=== PATIENT | female | born 1940 | race Caucasian/White ===

== ENCOUNTER 2021-06-29 11:38 | Observation (INO) | payer OTHER ==
--- OUTSIDE RECORDS SUMMARY | 2021-06-29 11:46 | XMS REPORT | Continuity of Care Document ---
:1940 Author Organization [facility] t Address [address] [place] [address] [address] [place] [address] Care Team Providers Name Role Phone MARGRET Wesley Primary Care Physician Unavailable Vaccine, Db Cbc Fam Attending Clinician Unavailable Yocasta GRIFFIN Attending Clinician YOCASTA Attending Clinician Unavailable Doctor Unassigned, Name Attending Clinician Unavailable WILLY BRADFORD Attending Clinician Unavailable Nurse, Pob Immunization Attending Clinician Unavailable Willy Bradford DO Attending Clinician Alethea BAUMAN Attending Clinician Unavailable Diana HYATT Attending Clinician Unavailable Payers Payer Name Policy Type Policy Number Effective Date Expiration Date S beto MEDICARE PART A \T\ [id number] 2003 B 00:00:00 GENERIC MEDICARE [id number] ADVANTAGE PPO MEDICARE PART A \T\ [id number] B - MEDICARE MEDICARE SUPPLEMENT [id number] [facility] CHOICE/CHOICE [id number] PLUS/OPTIONS [facility] Problems Condition Condition Condition Status Onset Resolution Last Treating Co mments Source Name Details Category Date Date Treatment Clinician Date No known No known Disease Unive rs active active ity of problems problems [facility] Allergies, Adverse Reactions, Alerts Allergy Allergy Status Severity Reaction(s) Onset Inactive Treating Comm ents Source Name Type Date Date Clinician NO KNOWN Drug Active Univers ALLERGIE Class ity of S [facility] Social History Social Habit Start Date Stop Date Quantity Comments Source Exposure to Not sure [facility] SARS-CoV-2 (event) Medica l Branch Tobacco use and 2017-12-02 2017-12-02 Never used [facility] exposure 00:00:00 00:00:00 Medical Branch Alcohol intake 2017-12-02 2017-12-02 0 /d [facility] 00:00:00 00:00:00 Medical Branch Sex [birth year] [facility] 00:00:00 00:00:00 Medical Branch Smoking Status Start Date Stop Date Source Never smoker [facility] Medical Branch Medications Ordered Filled Start Stop Current Ordering Indication Dosage Frequency Signature Comments Components Source Medication Medication Date Date Medication? Clinician (SIG) Name Name donepezil 5 Yes 5mg Take 5 mg U nivers mg tablet 4-06 by mouth ity of 17:41: daily. [address] DULoxetine Yes 60mg Take 60 mg U nivers (CYMBALTA) 4-06 by mouth 2 ity of 60 mg 17:41: (two) [place] capsule 58 times Medical daily. Branch clonazePAM Yes .5mg Take 0.5 Uni vers 0.5 mg 4-06 mg by ity of tablet 17:41: mouth 4 [place] [address] (four) Medical times Branch daily. DULoxetine 2017- Yes 60mg Take 60 mg U nivers (CYMBALTA) 4-06 by mouth 2 ity of 60 mg 12:41: (two) [place] capsule 58 times Medical daily. Branch clonazePAM Yes .5mg Take 0.5 Uni vers 0.5 mg 4-06 mg by ity of tablet 12:41: mouth 4 [place] [address] (four) Medical times Branch daily. donepezil 5 Yes 5mg Take 5 mg U nivers mg tablet 4-06 by mouth ity of 12:41: daily. [address] DULoxetine 2017 Yes 60mg Take 60 mg U nivers (CYMBALTA) 4-06 by mouth 2 ity of 60 mg 12:41: (two) [place] capsule 58 times Medical daily. Branch clonazePAM 2017- Yes .5mg Take 0.5 Uni vers 0.5 mg 4-06 mg by ity of tablet 12:41: mouth 4 [place] [address] (four) Medical times Branch daily. donepezil 5 Yes 5mg Take 5 mg U nivers mg tablet 4-06 by mouth ity of 12:41: daily. [place] [address] Medical Branch DULoxetine 2017-0 Yes 60mg Take 60 mg U nivers (CYMBALTA) 4-06 by mouth 2 ity of 60 mg 12:41: (two) [place] capsule 58 times Medical daily. Branch clonazePAM 2017-0 Yes .5mg Take 0.5 Uni vers 0.5 mg 4-06 mg by ity of tablet 12:41: mouth 4 [place] 58 (four) Medical times Branch daily. donepezil 5 2017-0 Yes 5mg Take 5 mg U nivers mg tablet 4-06 by mouth ity of 12:41: daily. [place] [address] Medical Branch gabapentin 2017-0 Yes 100mg Take 1 Univ ers 100 mg 4-06 capsule by ity of capsule 00:00: mouth as [place] 00 needed for Medical Pain Branch (scale 4-6). gabapentin 2017-0 Yes 100mg Take 1 Univ ers 100 mg 4-06 capsule by ity of capsule 00:00: mouth as [place] 00 needed for Medical Pain Branch (scale 4-6). gabapentin 2017-0 Yes 100mg Take 1 Univ ers 100 mg 4-06 capsule by ity of capsule 00:00: mouth as [place] 00 needed for Medical Pain Branch (scale 4-6). gabapentin 2017-0 Yes 100mg Take 1 Univ ers 100 mg 4-06 capsule by ity of capsule 00:00: mouth as [place] 00 needed for Medical Pain Branch (scale 4-6). HYDROcodone 2017-0 Yes 1{tbl} Take 1 Tab Univers -acetaminop 3-23 by mouth 4 it y of [place] (NOR[place]) 19:58: (four[place] 10-325 [place] 53 times Medical tablet daily. Branch HYDROcodone 2017-0 Yes 1{tbl} Take 1 Tab Univers -acetaminop 3-23 by mouth 4 it y of [place] (NORCO) 14:58: (four[place] 10-325 mg 53 times Medical tablet daily. Branch HYDROcodone 2017-0 Yes 1{tbl} Take 1 Tab Univers -acetaminop 3-23 by mouth 4 it y of [place] (NORCO) 14:58: (four[place] 10-325 mg 53 times Medical tablet daily. Branch HYDROcodone 2017-0 Yes 1{tbl} Take 1 Tab Univers -acetaminop 3-23 by mouth 4 it y of [place] (NOR[place]) 14:58: (four[place] 10-325 [place] 53 times Medical tablet daily. Branch naproxen 2017-0 Yes 500mg Take 1 Univer s 500 mg 3-23 tablet by ity of tablet 00:00: mouth 2 (two) Medical times Branch daily with meals. naproxen 2017-0 Yes 500mg Take 1 Univer s 500 mg 3-23 tablet by ity of tablet 00:00: mouth 2 (two) Medical times Branch daily with meals. naproxen 2017-0 Yes 500mg Take 1 Univer s 500 mg 3-23 tablet by ity of tablet 00:00: mouth 2 (two) Medical times Branch daily with meals. naproxen 2017-0 Yes 500mg Take 1 Univer s 500 mg 3-23 tablet by ity of tablet 00:00: mouth 2 (two) Medical times Branch daily with meals. memantine 2017-0 Yes 10mg Take 10 mg Un osmar 10 mg 2-21 by mouth 2 ity of tablet 00:00: (two) times Medical daily. Branch memantine 2017-0 Yes 10mg Take 10 mg Un osmar 10 mg 2-21 by mouth 2 ity of tablet 00:00: (two) times Medical daily. Branch memantine 2017-0 Yes 10mg Take 10 mg Un osmar 10 mg 2-21 by mouth 2 ity of tablet 00:00: (two) times Medical daily. Branch memantine 2017-0 Yes 10mg Take 10 mg Un osmar 10 mg 2-21 by mouth 2 ity of tablet 00:00: (two) times Medical daily. Branch traZODONE 2017-0 Yes 50mg Take 50 mg Un osmar 50 mg 2-07 by mouth ity of tablet 00:00: at [place] [address] bedtime. Medical Branch traZODONE 2017-0 Yes 50mg Take 50 mg Un osmar 50 mg 2-07 by mouth ity of tablet 00:00: at [place] [address] bedtime. Medical Branch traZODONE 2017-0 Yes 50mg Take 50 mg Un osmar 50 mg 2-07 by mouth ity of tablet 00:00: at [place] [address] bedtime. Medical Branch traZODONE 2017-0 Yes 50mg Take 50 mg Un osmar 50 mg 2-07 by mouth ity of tablet 00:00: at [place] [address] bedtime. Medical Branch Immunizations Ordered Filled Immunization Date Status Comments Sour e Immunization Name Name SARS-COV-2 COVID-19 2021-06-18 Completed Unive rsity of MODERNA BOOSTER 00:00:00 [place] Med ical VACCINE Branch SARS-COV-2 COVID-19 2020-12-12 Completed Unive rsity of MODERNA VACCINE 00:00:00 [place] Med ical Branch SARS-COV-2 COVID-19 2020-12-12 Completed Unive rsity of MODERNA VACCINE 00:00:00 [place] Med ical Branch SARS-COV-2 COVID-19 2020-12-12 Completed Unive rsity of MODERNA VACCINE 00:00:00 [place] Med ical Branch SARS-COV-2 COVID-19 2020-04-11 Completed Unive rsity of MODERNA VACCINE 00:00:00 [place] Med ical Branch SARS-COV-2 COVID-19 2020-04-11 Completed Unive rsity of MODERNA VACCINE 00:00:00 [place] Med ical Branch SARS-COV-2 COVID-19 2020-04-11 Completed Unive rsity of MODERNA VACCINE 00:00:00 [place] Med ical Branch SARS-COV-2 COVID-19 2020-04-11 Completed Unive rsity of MODERNA VACCINE 00:00:00 [place] Med ical Branch SARS-COV-2 COVID-19 2020-03-14 Completed Unive rsity of MODERNA VACCINE 00:00:00 [place] Med ical Branch SARS-COV-2 COVID-19 2020-03-14 Completed Unive rsity of MODERNA VACCINE 00:00:00 [place] Med ical Branch SARS-COV-2 COVID-19 2020-03-14 Completed Unive rsity of MODERNA VACCINE 00:00:00 [place] Med ical Branch SARS-COV-2 COVID-19 2020-03-14 Completed Unive rsity of MODERNA VACCINE 00:00:00 [place] Med ical Branch Procedures Procedure Date / Time Performed Performing Clinician [facility] e SARS-COV-2 COVID-19 2021-06-18 20:06:38 Doctor Unassigned, No Un iversity of [place] VACCINE Name Medical Branch BOOSTER,0.25ML,IM (MODERNA) CONSENT/REFUSAL FOR 2021-06-18 19:49:32 Doctor Unassigned, No Un iversity of [place] DIAGNOSIS AND Name [facility] TREATMENT SARS-COV-2 COVID-19 2020-12-12 15:14:24 Doctor Unassigned, No [facility] [place] VACCINE,0.5ML,IM Name [facility] (MODERNA) CLINIC RECORD / SMR 2020-10-23 05:01:00 Doctor Unassigned, No Un iversity of [facility] Encounters Start End Encounter Admission Attending Care Care Encounter Source Date/Time Date/Time Type Type Clinicians Facility Department ID 2021-06-18 2021-06-18 Imm/Inj Vaccine, Ang Db Cbc Fam [facility] 1. [id number] Univers 15:10:00 15:20:00 Visit Monet Oreilly [id number] ity [facility] [id number] Ankit as THIAGO?BLEA [id number] [address] MEDICAL OFFICE BUILDING 2021-06-18 2021-06-18 Outpatient R [facility] [id number] Univers 15:10:00 15:10:00 [id number] ity [facility] 2021-06-18 2021-06-18 Outpatient R YOCASTA [facility] [id number] Univers 15:10:00 15:10:00 MONET julio [facility] 2021-06-18 2021-06-18 Orders Doctor MEDINA [id number] Univers 00:00:00 00:00:00 Only UnassignedJEANINE [id number] ity of [facility] [id number] Ankit as [id number] [address] 2020-12-12 2020-12-12 Outpatient R MYKE [facility] [id number] Univers 10:30:00 10:30:00 DILIP julio [facility] 2020-12-12 2020-12-12 Imm/Inj Nurse, Adc Pob Immunization [facility] [id number] Univers 10:10:51 10:11:00 Visit Dilip Bradford [id number] .10 ity [place] [id number] [place] Profess[place] [phone] [place] [address] [facility] 2020-10-23 2020-10-23 Orders Doctor ADAM [id number] Univers 00:00:00 00:00:00 Only Unassigned, JEANINE [id number] ity of [place] [facility] [id number] Ankit as [id number] [address] 2020-09-18 2020-09-18 Outpatient PFLUGFELDER [facility] BC [id number] [facility] 12:12:00 15:20:20 , CHANDNI gee of Medicin e 2020-04-11 2020-04-11 Outpatient Su HYATT [facility] [id number] Univers 09:00:00 09:00:00 IBRAHIMA [id number] [facility] 2020-04-11 2020-04-11 Outpatient Su HYATT [facility] [id number] Univers 09:00:00 09:00:00 IBRAHIMA [facility] 2020-03-14 2020-03-14 Outpatient Su HYATT [facility] [id number] Univers 09:00:00 09:00:00 IBRAHIMA [id number] [facility] 2020-03-14 2020-03-14 Outpatient Su HYATT [facility] [id number] Univers 09:00:00 09:00:00 IBRAHIMA [facility] 2020-03-14 2020-03-14 Outpatient Su HYATT [facility] [id number] Univers 09:00:00 09:00:00 IBRAHIMA [facility] Results This patient has no known results.
[2021-06-29] MEDS ORDERED: NA CHLORIDE 0.9% 1,000 ML ONE (12:31)
--- NOTE | 2021-06-29 12:37 | RAD REPORT ---
EXAM DESCRIPTION: CT - Head Brain Wo Cont - 06/29/2021 12:30 pm CLINICAL HISTORY: unresponsive, fall, left-sided head trauma COMPARISON: No comparisons TECHNIQUE: Axial 5 mm thick images of the head were obtained without IV contrast. All CT scans are performed using dose optimization technique as appropriate and may include automated exposure control or mA/KV adjustment according to patient size. FINDINGS: No intracranial hemorrhage, mass, edema or shift of mid-line structures. No acute cortical based infarction. No cortical edema or sulcal effacement. No abnormal extra-axial fluid collections. No significant atrophy seen. Scattered chronic ischemic changes noted in the cerebral white matter. Ventricles are normal size. Mastoid air cells and visualized portions of the paranasal sinuses are clear. No acute bony findings. IMPRESSION: Negative non-contrast CT head examination for acute finding.
[2021-06-29 13:13] LABS: Urine Blood Negative (Negative); Urine Glucose Negative (Negative); Urine Protein Negative (Negative); Urine Specific Gravity 1.015 (1.005-1.030)
--- NOTE | 2021-06-29 13:20 | ER ---
Nurse's Notes [facility] Name: Yoselin Stevens Age: 81 yrs Sex: Female : 1940 Arrival Date: 06/29/2021 Time: 11:52 Bed 4 Private MD: Diagnosis: Altered mental status, unspecified;Adverse effect of other narcotics-overdose, unintentional;Chronic pain, not elsewhere classified;Weakness;Acute kidney failure, unspecified-on chronic;Hyperkalemia Presentation: 06/29 11:44 Chief complaint: EMS states: Toned out for Unresponsive; pt was found by with vg1 shallow breathing. BP was 85/40; stated gave pt Hydrocodone for back pain; pt received NARCAN 0.5mcg IVP x1 in route pt is now AOx3; also received 300 mL NS, BG 152. 11:44 Coronavirus screen: Vaccine status: Patient reports receiving the 2nd dose of the covid vg1 vaccine. Client denies travel out of the [place] in the last 14 days. Ebola Screen: Patient negative for fever greater than or equal to 101.5 degrees Fahrenheit, and additional compatible Ebola Virus Disease symptoms. Initial Sepsis Screen: Does the patient meet any 2 criteria? No. Patient's initial sepsis screen is negative. Does the patient have a suspected source of infection? No. Patient's initial sepsis screen is negative. Risk Assessment: Do you want to hurt yourself or someone else? Patient reports no desire to harm self or others. Onset of symptoms was June 29, 2021. 11:44 Method Of Arrival: EMS: [facility] 11:44 Acuity: AMANDEEP 3 vg1 11:44 Care prior to arrival: IV initiated. 20 GA, in the left forearm. vg1 Triage Assessment: 11:45 General: Appears in no apparent distress. comfortable, Behavior is calm, cooperative. vg1 Pain: Denies pain. EENT: No signs and/or symptoms were reported regarding the EENT system. Neuro: Level of Consciousness is awake, alert, obeys commands, Oriented to person, place, time, situation. Cardiovascular: Patient's skin is warm and dry. Respiratory: Airway is patent Respiratory effort is even, unlabored. GI: No signs and/or symptoms were reported involving the gastrointestinal system. : No signs and/or symptoms were reported regarding the genitourinary system. Derm: Skin is intact, Skin is pink, warm \\T\\ dry. Musculoskeletal: Circulation, motion, and sensation intact. Historical: - Allergies: 12:01 No Known Allergies; vg1 - Home Meds: 12:01 Abilify oral [Active]; BP med [Active]; duloxetine oral [Active]; Clonazepam Oral vg1 [Active]; - PMHx: 12:01 Parkinson's disease; Alzheimer's disease; Arthritis; Depressive disorder; vg1 - Immunization history:: Client reports receiving the 2nd dose of the Covid vaccine. - Social history:: Smoking status: Patient denies any tobacco usage or history of. - Family history:: not pertinent. Screenin:04 Abuse screen: Denies threats or abuse. Nutritional screening: No deficits noted. vg1 Tuberculosis screening: No symptoms or risk factors identified. Fall Risk No fall in past 12 months (0 pts). No secondary diagnosis (0 pts). IV access (20 points). Ambulatory Aid- None/Bed Rest/Nurse Assist (0 pts). Gait- Normal/Bed Rest/Wheelchair (0 pts) Mental Status- Oriented to own ability (0 pts). Total Mcgregor Fall Scale indicates No Risk (0-24 pts). Assessment: 12:04 Reassessment: SEE TRIAGE. vg1 12:15 Reassessment: Pt denies SI. vg1 13:14 Reassessment: Patient appears in no apparent distress at this time. No changes from vg1 previously documented assessment. Patient and/or family updated on plan of care and expected duration. Pain level reassessed. Patient is alert, oriented x 3, equal unlabored respirations, skin warm/dry/pink. Patient denies pain at this time. 14:12 Reassessment: Patient appears in no apparent distress at this time. No changes from vg1 previously documented assessment. Patient and/or family updated on plan of care and expected duration. Pain level reassessed. Patient is alert, oriented x 3, equal unlabored respirations, skin warm/dry/pink. Patient denies pain at this time. Vital Signs: 11:44 BP 124 / 54; Pulse 75; Resp 16; Temp 97.5; Pulse Ox 100% on R/A; Weight 63.5 kg; Height vg1 5 ft. 1 in. (154.94 cm); Pain 0/10; 13:14 BP 121 / 70; Pulse 62; Resp 15; Pulse Ox 98% on R/A; vg1 13:30 BP 143 / 72; Pulse 61; Resp 16; Pulse Ox 100% ; jl7 14:00 BP 160 / 71; Pulse 63; Resp 15; Pulse Ox 100% ; jl7 15:00 BP 153 / 79; Pulse 64; Resp 15; Pulse Ox 100% ; jl7 11:44 Body Mass Index 26.45 (63.50 kg, 154.94 cm) vg1 ED Course: 11:45 Arm band placed on. vg1 11:52 Patient arrived in ED. vg1 12:00 Triage completed. vg1 12:05 Patient has correct armband on for positive identification. Placed in gown. Bed in low vg1 position. Call light in reach. Side rails up X2. Adult w/ patient. monitor tech on. Pulse ox on. NIBP on. 12:07 Gamaliel Benson MD is Attending Physician. vicenta 12:14 EKG done, by ED staff. jw7 12:25 Annita Bruner, RN is Primary Nurse. ss 12:31 CT Head Brain wo Cont In Process Unspecified. EDMS 12:56 Marcy Ward, RN is Primary Nurse. vg1 13:18 Candido Thornton MD is Hospitalizing Provider. vicenta 13:27 XRAY Chest (1 view) In Process Unspecified. EDMS 13:46 SARS-COV-2 RT PCR (Document "Date of Onset" if Symptomatic) Sent. dh3 13:46 COVID swab sent to lab. dh3 15:58 No provider procedures requiring assistance completed. jl7 16:00 Patient admitted, IV remains in place. intact, No redness/swelling at site. jl7 Administered Medications: 13:08 Drug: NS 0.9% 500 ml Route: IV; Rate: bolus; Site: left forearm; vg1 14:12 Follow up: IV Status: Completed infusion; IV Intake: 500ml vg1 13:54 Drug: NS 0.9% 1000 ml Route: IV; Rate: 125 ml/hr; Site: left forearm; jl7 15:50 Follow up: IV Status: Infusion continued upon admission jl7 14:53 Drug: NS 0.9% 500 ml Route: IV; Rate: bolus; Site: left antecubital; vg1 15:30 Follow up: Response: No adverse reaction; IV Status: Completed infusion; IV Intake: jl7 500ml 15:00 Drug: Kayexalate (polystyrene) 15 grams Route: PO; 7 15:58 Follow up: Response: No adverse reaction jl7 Intake: 14:12 IV: 500ml; Total: 500ml. vg1 15:30 IV: 500ml; Total: 1000ml. jl7 Outcome: 13:19 Decision to Hospitalize by Provider. vicenta 15:58 Admitted to Med/surg via wheelchair, room 221, with chart, Report called to Floor jl7 nurse 15:58 Condition: stable 15:58 Discharge instructions given to patient, family, Instructed on the need for admit, Demonstrated understanding of instructions. 16:00 Patient left the ED. jl7 Signatures: Dispatcher [employer] Gamaliel Andrew MD MD cha Smirch, Shelby, RN RN Emma Rizo RN RN jl7 Munira Abdul Victoria RN RN 1 Hayde Zeng 7
--- NOTE | 2021-06-29 13:20 | EDPHYS ---
Physician Documentation [facility] Name: Yoselin Stevens Age: 81 yrs Sex: Female : 1940 Arrival Date: 06/29/2021 Time: 11:52 Bed 4 Private MD: ED Physician Gamaliel Benson HPI: 06/29 13:14 This 81 yrs old Female presents to ER via EMS with complaints of Unresponsive.vicenta 13:14 weak, unresponsive, after vicodin , given narcan. The patient presents with confusion, vicenta decreased mental status, decreased responsiveness. Onset: The symptoms/episode began/occurred this morning, today. Possible causes: drug use, narcotics. Associated signs and symptoms: The patient has no apparent associated signs or symptoms. Onset: The symptoms/episode began/occurred. Current symptoms: In the emergency department the patient's symptoms have improved, moderately. Patient's baseline: Neuro: alert and fully oriented. Severity of symptoms: At their worst the symptoms were mild in the emergency department the symptoms are unchanged. The patient has not experienced similar symptoms in the past. Historical: - Allergies: 12:01 No Known Allergies; vg1 - Home Meds: 12:01 Abilify oral [Active]; BP med [Active]; duloxetine oral [Active]; Clonazepam Oral vg1 [Active]; - PMHx: 12:01 Parkinson's disease; Alzheimer's disease; Arthritis; Depressive disorder; vg1 - Immunization history:: Client reports receiving the 2nd dose of the Covid vaccine. - Social history:: Smoking status: Patient denies any tobacco usage or history of. - Family history:: not pertinent. ROS: 13:14 Constitutional: Negative for fever, chills, and weight loss, Eyes: Negative for injury, vicenta pain, redness, and discharge, ENT: Negative for injury, pain, and discharge, Neck: Negative for injury, pain, and swelling, Cardiovascular: Negative for chest pain, palpitations, and edema, Respiratory: Negative for shortness of breath, cough, wheezing, and pleuritic chest pain, Abdomen/GI: Negative for abdominal pain, nausea, vomiting, diarrhea, and constipation, : Negative for injury, bleeding, discharge, and swelling, MS/Extremity: Negative for injury and deformity, Skin: Negative for injury, rash, and discoloration, Psych: Negative for depression, anxiety, suicide ideation, homicidal ideation, and hallucinations, Allergy/Immunology: Negative for hives, rash, and allergies, Endocrine: Negative for neck swelling, polydipsia, polyuria, polyphagia, and marked weight changes, Hematologic/Lymphatic: Negative for swollen nodes, abnormal bleeding, and unusual bruising. 13:14 Back: Positive for pain at rest, pain with movement. 13:14 Neuro: Positive for altered mental status, weakness. Exam: 13:16 Constitutional: This is a well developed, well nourished patient who is awake, alert, vicenta and in no acute distress. Head/Face: Normocephalic, atraumatic. Eyes: Pupils equal round and reactive to light, extra-ocular motions intact. Lids and lashes normal. Conjunctiva and sclera are non-icteric and not injected. Cornea within normal limits. Periorbital areas with no swelling, redness, or edema. ENT: Nares patent. No nasal discharge, no septal abnormalities noted. Tympanic membranes are normal and external auditory canals are clear. Oropharynx with no redness, swelling, or masses, exudates, or evidence of obstruction, uvula midline. Mucous membranes moist. Neck: Trachea midline, no thyromegaly or masses palpated, and no cervical lymphadenopathy. Supple, full range of motion without nuchal rigidity, or vertebral point tenderness. No Meningismus. Chest/axilla: Normal chest wall appearance and motion. Nontender with no deformity. No lesions are appreciated. Cardiovascular: Regular rate and rhythm with a normal S1 and S2. No gallops, murmurs, or rubs. Normal PMI, no JVD. No pulse deficits. Respiratory: Lungs have equal breath sounds bilaterally, clear to auscultation and percussion. No rales, rhonchi or wheezes noted. No increased work of breathing, no retractions or nasal flaring. Abdomen/GI: Soft, non-tender, with normal bowel sounds. No distension or tympany. No guarding or rebound. No evidence of tenderness throughout. Female : Normal external genitalia. Skin: Warm, dry with normal turgor. Normal color with no rashes, no lesions, and no evidence of cellulitis. MS/ Extremity: Pulses equal, no cyanosis. Neurovascular intact. Full, normal range of motion. Psych: Awake, alert, with orientation to person, place and time. Behavior, mood, and affect are within normal limits. 13:16 Back: pain, that is mild, ROM is painful, normal spinal alignment noted, CVA tenderness, is absent, vertebral tenderness, is not appreciated. 13:34 ECG was reviewed by the Attending Physician. vicenta Vital Signs: 11:44 BP 124 / 54; Pulse 75; Resp 16; Temp 97.5; Pulse Ox 100% on R/A; Weight 63.5 kg; Height vg1 5 ft. 1 in. (154.94 cm); Pain 0/10; 13:14 BP 121 / 70; Pulse 62; Resp 15; Pulse Ox 98% on R/A; vg1 13:30 BP 143 / 72; Pulse 61; Resp 16; Pulse Ox 100% ; jl7 14:00 BP 160 / 71; Pulse 63; Resp 15; Pulse Ox 100% ; jl7 15:00 BP 153 / 79; Pulse 64; Resp 15; Pulse Ox 100% ; jl7 11:44 Body Mass Index 26.45 (63.50 kg, 154.94 cm) vg1 MDM: 12:07 Patient medically screened. vicenta 13:17 Differential Diagnosis altered mental status. Differential Diagnosis: CVA, electrolyte vicenta abnormality, alcohol intoxication, overdose, TIA, UTI, volume depletion. Data reviewed: vital signs, nurses notes, lab test result(s), EKG, radiologic studies, CT scan, plain films. Data interpreted: night monitor: rate is 75 beats/min, rhythm is regular, Pulse oximetry: on room air is 100 %. Test interpretation: by ED physician or midlevel provider: ECG, plain radiologic studies. Counseling: I had a detailed discussion with the patient and/or guardian regarding: the historical points, exam findings, and any diagnostic results supporting the discharge/admit diagnosis, lab results, radiology results, the need for further work-up and treatment in the hospital. 06/29 12:09 Order name: Basic Metabolic Panel; Complete Time: 15:12 [facility] 06/29 12:09 Order name: CBC with Diff; Complete Time: 15:12 [facility] 06/29 12:09 Order name: LFT's; Complete Time: 15:12 [facility] 06/29 12:09 Order name: Magnesium; Complete Time: 15:12 [facility] 06/29 12:09 Order name: NT PRO-BNP; Complete Time: 15:12 [facility] 06/29 12:09 Order name: PT-INR; Complete Time: 13:34 [facility] 06/29 12:09 Order name: Troponin HS; Complete Time: 15:12 [facility] 06/29 12:09 Order name: Acetaminophen; Complete Time: 15:12 [facility] 06/29 12:09 Order name: ETOH Level; Complete Time: 13:48 [facility] 06/29 12:09 Order name: Ptt, Activated; Complete Time: 13:34 [facility] 06/29 12:09 Order name: Salicylate; Complete Time: 15:12 [facility] 06/29 12:09 Order name: Urine Drug Screen; Complete Time: 13:48 [facility] 06/29 13:11 Order name: Urine Culture [facility] 06/29 13:13 Order name: Urine Dipstick-Ancillary; Complete Time: 13:34 [facility] 06/29 12:09 Order name: XRAY Chest (1 view); Complete Time: 15:12 [facility] 06/29 12:09 Order name: EKG; Complete Time: 12:10 [facility] 06/29 12:09 Order name: CT Head Brain wo Cont; Complete Time: 13:08 [facility] 06/29 13:36 Order name: Regular [facility] 06/29 13:36 Order name: EKG Electrocardiogram [facility] 06/29 13:36 Order name: Basic Metabolic Panel [facility] 06/29 13:36 Order name: Basic Metabolic Panel [facility] 06/29 13:36 Order name: CBC with Automated Diff [facility] 06/29 13:36 Order name: CBC with Automated Diff [facility] 06/29 13:38 Order name: SARS-COV-2 RT PCR (Document "Date of Onset" if Symptomatic); Complete Time: eb 15:12 06/29 14:14 Order name: CT Stone Protocol [facility] 06/29 15:09 Order name: CT; Complete Time: 15:12 [facility] 06/29 12:09 Order name: Cardiac monitoring; Complete Time: 12:15 [facility] 06/29 12:09 Order name: EKG - Nurse/Tech; Complete Time: 12:15 [facility] 06/29 12:09 Order name: IV Saline Lock; Complete Time: 12:56 [facility] 06/29 12:09 Order name: Labs collected and sent; Complete Time: 12:56 [facility] 06/29 12:09 Order name: O2 Per Protocol; Complete Time: 12:56 [facility] 06/29 12:09 Order name: O2 Sat Monitoring; Complete Time: 12:15 [facility] 06/29 12:09 Order name: Suicide Screening ([place]); Complete Time: 14:12 [facility] 06/29 12:09 Order name: Urine Dipstick-Ancillary (obtain specimen); Complete Time: 13:14 [facility] 06/29 13:36 Order name: EKG Electrocardiogram [facility] 06/29 13:36 Order name: EKG Electrocardiogram [facility] 06/29 13:36 Order name: EKG Electrocardiogram [facility] EC:34 Rate is 58 beats/min. Rhythm is regular. QRS [place] is Normal. ID interval is normal. QRS vicenta interval is normal. QT interval is normal. No Q waves. T waves are Normal. No ST changes noted. Clinical impression: NSR w/ Non-specific ST/T Changes and No evidence of ischemia. Interpreted by me. Reviewed by me. Administered Medications: 13:08 Drug: NS 0.9% 500 ml Route: IV; Rate: bolus; Site: left forearm; vg1 14:12 Follow up: IV Status: Completed infusion; IV Intake: 500ml vg1 13:54 Drug: NS 0.9% 1000 ml Route: IV; Rate: 125 ml/hr; Site: left forearm; jl7 15:50 Follow up: IV Status: Infusion continued upon admission jl7 14:53 Drug: NS 0.9% 500 ml Route: IV; Rate: bolus; Site: left antecubital; vg1 15:30 Follow up: Response: No adverse reaction; IV Status: Completed infusion; IV Intake: jl7 500ml 15:00 Drug: Kayexalate (polystyrene) 15 grams Route: PO; jl7 15:58 Follow up: Response: No adverse reaction jl7 Disposition Summary: 06/29/21 13:19 Hospitalization Ordered Hospitalization Status: Observation vicenta Provider: Candido Thornton cha Location: Telemetry/MedSurg (observation) vicenta Condition: Fair vicenta Problem: new vicenta Symptoms: have improved vicenta Bed/Room Type: Standard vicenta Room Assignment: 221(06/29/21 15:25) eb Diagnosis - Altered mental status, unspecified vicenta - Adverse effect of other narcotics - overdose, unintentional vicenta - Chronic pain, not elsewhere classified vicenta - Weakness vicenta - Acute kidney failure, unspecified - on chronic vicenta - Hyperkalemia vicenta Forms: - Medication Reconciliation Form vicenta - SBAR form vicenta Signatures: Dispatcher [employer] Gamaliel Andrew MD MD cha Leal, Jahala, RN RN jl7 Lisbet Donald Victoria RN RN vg1 Corrections: (The following items were deleted from the chart) 15:25 13:19 vicenta cortez
[2021-06-29 13:22] LABS: Protime INR 0.88
[2021-06-29] MEDS ORDERED: ONDANSETRON 4 MG/2 ML VIAL IV PRN (13:31)
[2021-06-29] MEDS ORDERED: ACETAMINOPHEN 500 MG TAB PO PRN (13:31)
[2021-06-29 13:43] LABS: ALT/SGPT 22 U/L (12-78); AST/SGOT 18 U/L (15-37); Albumin 3.8 g/dL (3.4-5.0); Alkaline Phosphatase 88 U/L (45-117); BUN Blood Urea Nitrogen 24 mg/dL (7-18); Bicarbonate 27 mmol/L (21-32); Bilirubin Total 0.5 mg/dL (0.2-1.0); Glucose Level 132 mg/dL (74-106); Magnesium 2.6 mg/dL (1.8-2.4); NT PRO-BNP 292 pg/mL (<450); Potassium 5.2 mmol/L (3.5-5.1); Protein, Total 6.7 g/dL (6.4-8.2); Sodium Level 128 mmol/L (136-145); Troponin High Sensitivity 5.5 pg/mL (<58.9)
[2021-06-29 13:43] LABS: Barbiturates NEGATIVE (NEGATIVE); Benzodiazepines NEGATIVE (NEGATIVE); Cocaine NEGATIVE (NEGATIVE); METHAMPHETAM NEGATIVE (NEGATIVE); Methadone NEGATIVE (NEGATIVE); Opiates POSITIVE (NEGATIVE); Phencyclidine NEGATIVE (NEGATIVE); THC Cannibis NEGATIVE (NEGATIVE)
[2021-06-29 13:46] LABS: Absolute Lymphocytes (CBC) 0.9 K/uL (0.7-4.9); Hematocrit 35.5 % (36.0-45.0); Lymphocytes % 15.6 % (15.3-44.8); MPV 7.2 fL (7.6-11.3); RBC Red Blood Cell Count 3.64 M/uL (3.86-4.86)
[2021-06-29 13:51] LABS: Bilirubin Direct < 0.1 mg/dL (0-0.2)
[2021-06-29] MEDS ORDERED: NA CHLORIDE 0.9% 1,000 ML IV SCH (14:00)
--- NOTE | 2021-06-29 14:40 | RAD REPORT ---
EXAM DESCRIPTION: RAD - Chest Single View - 06/29/2021 1:25 pm CLINICAL HISTORY: COUGH COMPARISON: None available TECHNIQUE: AP portable chest image was obtained 06/29/2021 1:25 pm . FINDINGS: Lungs are clear. Heart and vasculature are normal. No measurable pleural effusion and no p neumothorax. No acute bony abnormality seen. No acute aortic findings suspected. IMPRESSION: No acute cardiopulmonary process.
[2021-06-29] MEDS ORDERED: SOD POLYSTYREN SUL 15 GM/60 ML UCUP ONE (14:58)
--- NOTE | 2021-06-29 15:09 | RAD REPORT ---
EXAM DESCRIPTION: CT - Stone Protocol - 06/29/2021 2:52 pm CLINICAL HISTORY: Abdominal pain. Flank pain COMPARISON: None. TECHNIQUE: Computed axial tomography of the abdomen pelvis was obtained without oral or IV contrast. Lack of IV and oral contrast limits evaluation of solid organs, bowel, and vessels. Coronal reformat sussy images were obtained and reviewed. All CT scans are performed using dose optimization technique as appropriate and may include automated exposure control or mA/KV adjustment according to patient size. FINDINGS: A renal calculus is not seen. An ureteral calculus is not noted. A bladder calculus is not present. The liver, spleen, pancreas and adrenals appear grossly normal There is no evidence of diverticulitis. Borderline enlargement appendix. No adjacent stranding Moderate amount stool within the colon. Cholecystectomy. Hysterectomy IMPRESSION: Negative for a genitourinary calculus Moderate amount stool within the colon Borderline enlargement appendix. Given that there is no adjacent stranding this probably is not signi ficant. However, this should be correlated clinically
[2021-06-29 16:32] VITALS: BMI 26.4
[2021-06-29] MEDS: FAMOTIDINE 20 MG/2 ML VIAL IV SCH (17:06)
--- NOTE | 2021-06-29 17:06 | P.SSS ---
Patient History Date of Service: 06/29/21 Reason for admission: COULD NOT BE AWAKENED History of Present Illness: MS. WHALEY IS PATIENT WITH DEMENTIA AND ANXIETY WHO GOES TO PAIN DOCTOR FOR PAIN AND NARCOTICS. SHE COULD NOT BE AWAKENED THIS AM, BROUGHT TO ER, GIVEN NARCAN NOW HAS WOKE UP. SHE IS BACK TO HER BASELINE. DR. LEMON WANTS TO KEEP HER ONE DAY. Allergies No Known Allergies Allergy (Unverified 06/29/21 13:48) Home medications list reviewed: Yes - Past Medical/Surgical History -: Arthritis -: HTN -: Alzheimers -: Back Surgery - Social History Smoking Status: Never smoker Alcohol use: No CD- Drugs: No Caffeine use: No Place of Residence: Home Review of Systems 10-point ROS is otherwise unremarkable Physical Examination - Vital Signs Temperature: 97.5 F Blood Pressure: 153/79 Pulse: 64 Respirations: 15 - Physical Exam General: Alert, In no apparent distress HEENT: Atraumatic, PERRLA, Mucous membr. moist/pink, EOMI, Sclerae nonicteric Neck: Supple, 2+ carotid pulse no bruit, No LAD, Without JVD or thyroid abnormality Respiratory: Clear to auscultation bilaterally, Normal air movement Cardiovascular: Regular rate/rhythm, Normal S1 S2 Gastrointestinal: Normal bowel sounds, No tenderness Musculoskeletal: No tenderness Integumentary: No rashes Neurological: Normal gait, Normal speech, Normal strength at 5/5 x4 extr, Normal tone, Normal affect Lymphatics: No axilla or inguinal lymphadenopathy - Studies Laboratory Data (last 24 hrs) 06/29/21 12:50: PT 9.7, INR 0.88, APTT 26.1 06/29/21 12:50: WBC 5.8, Hgb 11.9 L, Hct 35.5 L, Plt Count 264 06/29/21 12:50: Sodium 128 L, Potassium 5.2 H, BUN 24 H, Creatinine 1.50 H, Glucose 132 H, Magnesium 2.6 H, Total Bilirubin 0.5, AST 18, ALT 22, Alkaline Phosphatase 88 - Diagnosis (Problem(s)) (1) Narcotic overdose Current Visit: Yes Status: Acute Plan: I TALKD TO . SHE IS ON [place] SHE WILL NEED TO CUT BACK OR CHANGE TO TRAMADOL. LEAVE IT TO PAIN DOCTOR. Qualifiers: Encounter type: initial encounter (2) Dehydration Current Visit: Yes Status: Acute Plan: IV FLUIDS SHOULD HELP. - Disposition Disposition: ROUTINE DISCHARGE
[2021-06-29] MEDS: NA CHLORIDE 0.9% 1,000 ML IV SCH (17:09)
[2021-06-29] MEDS ORDERED: PNEUMOCOCCAL VACCINE 0.5 ML IMVAC ONE (18:00)
[2021-06-30 03:41] LABS: Absolute Lymphocytes (CBC) 2.4 K/uL (0.7-4.9); Hematocrit 32.5 % (36.0-45.0); Lymphocytes % 33.8 % (15.3-44.8); RBC Red Blood Cell Count 3.36 M/uL (3.86-4.86)
[2021-06-30 04:19] LABS: Potassium 4.2 mmol/L (3.5-5.1)
[2021-06-30] MEDS: NA CHLORIDE 0.9% 1,000 ML IV SCH (06:23)
[2021-06-30 08:23] VITALS: BP 140/62; TEMP 97.7
[2021-06-30] MEDS: FAMOTIDINE 20 MG/2 ML VIAL IV SCH (08:46)
[2021-06-30 08:53] VITALS: O2SAT 96
[2021-06-30] MEDS ORDERED: ENOXAPARIN 30 MG/0.3 ML SQ SCH (09:00)
[2021-06-30] MEDS ORDERED: ASPIRIN EC 81 MG TAB PO SCH (09:00)
== END 2021-06-30 10:54 | disposition home or self-care (01) ==
LOC: ER 11:38 → ERHOLD 13:41 → 2ND 15:53
PROVIDERS: ADMIT Internal Medicine; ATTEND Internal Medicine
DX: T40.691A Poisoning by other narcotics, accidental (unintentional), initial encounter (principal); E86.0 Dehydration; G30.9 Alzheimer's disease, unspecified; F02.80 Dementia in other diseases classified elsewhere, unspecified severity, without behavioral disturbance, psychotic disturbance, mood disturbance, and anxiety; I10 Essential (primary) hypertension; F41.9 Anxiety disorder, unspecified; R52 Pain, unspecified; M19.90 Unspecified osteoarthritis, unspecified site; F32.A Depression, unspecified; Z79.899 Other long term (current) drug therapy; Z20.822 Contact with and (suspected) exposure to COVID-19
CPT/HCPCS: 96361; 93005; 87088; 85025 ×2; 87086; 80048 ×2; 36415; 80320; 83735; 80329 ×2; 85610; 80076; 85730; 81003; 84484; 83880; 80307; 70450; 76377; 74176; 71045; 96360; 99285; U0003; J1650; J7030 ×2; J3490 ×2; G0378 ×3